=== PATIENT | male | born 1945 | race Caucasian/White ===

== ENCOUNTER 2019-04-27 09:45 | Emergency (ER) | payer BC ==
[~2019-04-27] VITALS: Ht 180.3 cm; Wt 77.1 kg
[~2019-04-27 09:45] MED LIST: AMARYL4 MG PO; APAP500 PO; ASPIRIN325 PO; EFFIENT10 MG PO; GLUCOPHAGE XR500 MG PO; GLUCOPHAGE500 MG PO; IBUPROFEN 200200 M1 PO; LOPRESSOR25 PO; NITROQUICK0.4 MG SL; RELAFEN750 MG PO; ZOCOR 20 MG TAB20 M1 PO
[2019-04-27] MEDS ORDERED: MECLIZINE HCL25 M1 PO (10:09)
[2019-04-27] MEDS ORDERED: VALTREX1000 MG PO (11:01)
[2019-04-27 11:16] VITALS: BP 150/63
== END 2019-04-27 11:18 | disposition home or self-care (01) ==
LOC: M.ERS 09:45
DX: B02.9 Zoster without complications (principal); E11.9 Type 2 diabetes mellitus without complications; Z90.89 Acquired absence of other organs; Z88.5 Allergy status to narcotic agent